=== PATIENT | male | born 1940 | race Caucasian/White ===

== ENCOUNTER → 2018-01-04 07:56 | Outpatient (POV) | payer MEDICARE, SELFPAY | PROVIDERS: Family Provider Family Medicine; PCP Family Medicine; Visit Provider Dentist | DX: Z00.00 Encounter for general adult medical examination without abnormal findings (principal) ==

== ENCOUNTER → 2018-01-18 09:42 | Outpatient (POV) | payer MEDICARE, SELFPAY | PROVIDERS: Visit Provider Dentist | DX: Z00.00 Encounter for general adult medical examination without abnormal findings (principal) ==

== ENCOUNTER → 2021-11-25 09:13 | Outpatient (CLI) | payer MEDICARE, SELFPAY ==
--- NOTE | 2021-11-25 09:19 | CA_ITS ---
FINAL REPORT TECHNIQUE: Color Doppler, duplex Doppler and oakley scale sonography of the bilateral neck arterial vasculature was performed. Velocities were measured in the carotid arteries. Stenosis evaluation based on the validated velocity criteria. CLINICAL HISTORY: .HTN, HLD, DM FINDINGS: The peak systolic velocity of the right common carotid artery is 81 cm/s. The peak systolic velocity of the right internal carotid artery is 74 cm/s and end diastolic velocity 9 cm/s. The ICA/CCA ratio is 0.9. A mild amount of plaque is present. The right external carotid artery is patent. The right vertebral artery is patent with antegrade flow. The peak systolic velocity of the left common carotid artery is 150 cm/s. The peak systolic velocity of the left internal carotid artery is 78 cm/s and end diastolic velocity 21 cm/s. The ICA/CCA ratio is 0.8. A mild amount of plaque is present. The left external carotid artery is patent.The left vertebral artery is patent with antegrade flow. IMPRESSION: Less than 50% bilateral carotid stenosis. Bilateral patent vertebral arteries with antegrade flow. Reviewed, Interpreted and Dictated by Suleman Desouza III, MD Transcribed by Chichi Ordoñez Authenticated and [facility]
--- NOTE | 2021-11-25 09:19 | CA_ITS ---
APPROVED REPORT EXAM: Comprehensive 2D, Doppler, and color-flow Echocardiogram Recording Studio Set Up Worker: Yoli Rene, YOON, RVS Ht: 6 ft 0 in Wt: 265lbs BSA: 2.40 BP: 146/72 mmHg Indications: Murmur, Hx- Rheumatic fever in childhood, DM, HTN, HLD, Family HX-HD 2D Dimensions Aortic Root 3.52 cm LA Volume 67.70 mL Left Atrium 3.72 cm LA Volume Index 28.20 mL/m2 (M/F) 16-34 LVOT 2.12 cm (M/F) 1.5-2.5 M-Mode Dimensions RVDd 3.34 cm (0.9-2.6) LA Diam 4.51 cm (1.9-4.0) LVDd 5.67 cm (3.5-5.7) Ao Diam 3.52 cm (2.0-3.7) LVDs 3.66 cm (3.5-5.7) IVSd 1.05 cm (0.6-1.1) PWd 0.97 cm (0.6-1.1) EF (Teich) 64.20% EPSs 0.49 cm FS 35.40% EDV (Teich) 158.10 mL TAPSE 2.02 (<1.7) ESV (Teich) 56.60 mL LV Diastology E Decel Time 237.00 (160-240 msec) E/A Ratio 0.68 MED E' 6.10 (< 7 cm/sec) MED A' 10.10 cm/s E'/MED E' Ratio 12.21 (>14) Aortic Valve LVOT Max 111.00 (70-110 cm/s) LVOT VTI 27.19 cm AoV Peak Chago. 251.00 (50-130 cm/s) AO Peak GR. 25.30 mmHg AO Mean GR. 13.50 (<5 mmHg) AO VTI 59.52 (18-25 cm) ANGEL (VTI) 1.61 (2.5-4.5 cm2) Mitral Valve MV A Velocity 110.00 (40-130 cm/s) E/A Ratio 0.68 MV Decel. Time 237.00 (160-240 ms) MV Mean Gr. 1.40 (<2mmHg) Pulmonary Valve PV Peak Velocity 91.00 (50-150 cm/s) Tricuspid Valve TR P. Velocity 151.00 cm/s RAP Estimate 10.00 mmHg RVSP 19.10 mmHg Left Ventricle Left atrium is mildly enlarged, left ventricle is normal size mild concentric left ventricular hypertrophy, estimated ejection fraction 55% with no regional wall motion abnormality, grade 1 diastolic dysfunction seen without tissue Doppler evidence of raise left atrial pressure. Right Ventricle Right atrium and right ventricle are mildly enlarged with normal contractility. Aortic Valve Aortic valve is thickened and calcified with mean gradient across aortic valve is 16 mmHg, valve area is 1.5 cm, represents mild aortic stenosis, there is no significant aortic insufficiency. Mitral Valve Mitral valve grossly normal, there is trace mitral regurgitation. Tricuspid Valve Tricuspid grossly normal, there is trace tricuspid regurgitation, tricuspid regurgitation jet velocity is inadequate for calculation of the right ventricular systolic pressure. Pulmonic Valve Pulmonic valve is poorly visualized. Great Vessels Aortic root is normal size. Inferior vena cava is normal size with normal inspiratory collapse. Pericardium No significant pericardial effusion noted. Conclusion 1. Biatrial enlargement, normal left ventricular size, mild concentric left ventricular hypertrophy, estimated ejection fraction 55% with no regional wall motion abnormality, grade 1 diastolic dysfunction seen without tissue Doppler evidence of raise left atrial pressure. 2. Mildly enlarged right ventricle with normal contractility. 3. Thickened and calcified aortic valve with mild aortic stenosis, there is no aortic insufficiency. 4. Trace mitral and tricuspid regurgitation. 5. No significant pericardial effusion noted. 6. Inferior vena cava is normal size with normal spectral collapse. Electronically signed by : Kervin Leblanc MD 11/26/2021 11:35:41
--- NOTE | 2021-11-25 10:28 | XR_ITS ---
FINAL REPORT CLINICAL HISTORY: RT SHOULDER PAIN FINDINGS: RIGHT SHOULDER Three views were obtained. There is no acute fracture or dislocation. There is mild AC joint and moderate glenohumeral joint degenerative change. No soft tissue abnormality is identified. IMPRESSION: Mild and moderate degenerative changes as above. Reviewed, Interpreted and Dictated by Suleman Desouza III, MD Transcribed by Megan Palma Authenticated and [facility]
--- NOTE | 2021-11-25 10:28 | XR_ITS ---
FINAL REPORT CLINICAL HISTORY: ARTHROPATHY LT KNEE FINDINGS: LEFT KNEE Three views were obtained. There is no acute fracture or dislocation. No joint effusion is identified. There are mild to moderate degenerative changes. There is narrowing of the medial compartment. Subchondral cysts are seen in the medial femoral condyle and medial tibial plateau. No soft tissue abnormality is identified. IMPRESSION: Degenerative changes as above. Reviewed, Interpreted and Dictated by Suleman Desouza III, MD Transcribed by Megan Palma Authenticated and [facility]
== END ==
PROVIDERS: PCP Family Medicine; Visit Provider Family Medicine
DX: I05.8 Other rheumatic mitral valve diseases (principal); I65.23 Occlusion and stenosis of bilateral carotid arteries; M17.12 Unilateral primary osteoarthritis, left knee
CPT/HCPCS: 73030; 73562; 93306; 93880

== ENCOUNTER 2023-02-21 08:34 | Day surgery (SDC) | payer MEDICARE, SELFPAY ==
[2023-02-21] VITALS (7 sets, daily range): BP systolic 130–222; BP diastolic 70–100; PULSE 53–57; RESP 17–18; TEMP 36.3–36.4; O2SAT 96–100; BMI 35.9
--- NOTE | 2023-02-21 08:58 | SUR.PREOP ---
uNABLE TO SCAN EYE DROPS, PHARMACY NOTIFIED.
[2023-02-21 09:16] LABS: POC Glucose,Bedside 102 (70-110)
== END 2023-02-21 10:10 | disposition home or self-care (01) ==
PROVIDERS: PCP Family Medicine; Visit Provider Ophthalmology
PROC: (CPT 66984; principal; 2023-02-21 10:00)
DX: E11.36 Type 2 diabetes mellitus with diabetic cataract (principal); H25.9 Unspecified age-related cataract
CPT/HCPCS: 66984; 82962; V2632

== ENCOUNTER 2023-03-07 08:37 | Day surgery (SDC) | payer MEDICARE, SELFPAY ==
[2023-03-03 13:38] VITALS: BMI 34.4
[2023-03-07] VITALS (9 sets, daily range): BP systolic 131–189; BP diastolic 57–84; PULSE 52–57; RESP 16–20; TEMP 36.1; O2SAT 96–100
[2023-03-07 09:24] LABS: POC Glucose,Bedside 88 (70-110)
== END 2023-03-07 10:34 | disposition home or self-care (01) ==
PROVIDERS: PCP Family Medicine; Visit Provider Ophthalmology
PROC: (CPT 66984; principal; 2023-03-07 10:00)
DX: E11.36 Type 2 diabetes mellitus with diabetic cataract (principal); H25.9 Unspecified age-related cataract
CPT/HCPCS: 66984; 82962; V2632

== ENCOUNTER → 2023-04-07 09:32 | Outpatient (CLI) | payer MEDICARE, SELFPAY ==
--- NOTE | 2023-04-07 09:37 | US_ITS ---
FINAL REPORT TECHNIQUE: Sonographic images of the right upper quadrant were obtained. CLINICAL HISTORY: RUQ ABDOMINAL PAIN FINDINGS: PANCREAS: Unremarkable. LIVER: There are areas of hyperechogenicity, which is somewhat geographic, with and may represent fatty change. No focal hepatic lesion. No intrahepatic biliary ductal dilatation. GALLBLADDER: No gallstones. No gallbladder wall thickening or pericholecystic fluid. COMMON DUCT: Not visualized. RIGHT KIDNEY: The right kidney measures 14.1 cm. There are multiple right renal cysts. There is no hydronephrosis or stone. FREE FLUID: None. IMPRESSION: Probable fatty liver. Multiple right renal cysts. Reviewed, Interpreted and Dictated by Michaela Shelton MD Transcribed by Jennie Mascorro Authenticated and [facility]
== END ==
PROVIDERS: PCP Family Medicine; Visit Provider Family Medicine
DX: R10.11 Right upper quadrant pain (principal)
CPT/HCPCS: 76705

== ENCOUNTER → 2023-04-14 09:48 | Outpatient (CLI) | payer MEDICARE, SELFPAY ==
--- NOTE | 2023-04-14 09:55 | NM_ITS ---
FINAL REPORT CLINICAL HISTORY: ABD PAIN neg u/s for gb stones 10:10 am 8.39 mci tc choletec 2.3 mcg of cck injected into lt ant. pain with cck COMPARISON: None FINDINGS: Sequential anterior projection images of the abdomen were obtained after the intravenous injection of 8.39 mCi technetium 99m Choletec. There is normal uptake of radiotracer by the liver. The bile ducts are visualized by 5 minutes. Gallbladder activity is seen by 10 minutes. Bowel activity is noted by 30 minutes. After 1 hour, 3 ?g of CCK was injected intravenously for calculation of gallbladder ejection fraction. The gallbladder ejection fraction is 23%, which is lower than normal. IMPRESSION: No evidence of cystic duct or bile duct obstruction. Depressed fraction of 23%. Reviewed, Interpreted and Dictated by Aroldo Leos MD Transcribed by Natasha Cheung Authenticated and [facility]
== END ==
PROVIDERS: PCP Family Medicine; Visit Provider Family Medicine
DX: R10.11 Right upper quadrant pain (principal)
CPT/HCPCS: 78227; A9537; J2805

== ENCOUNTER → 2023-04-26 10:45 | Outpatient (CLI) | payer MEDICARE, SELFPAY ==
--- NOTE | 2023-04-26 10:47 | ECG_ITS ---
APPROVED REPORT Exam: Resting ECG HR:56 bpm ECG Measurements Heart Rate 56 AXES [place] 213 P 46 QRSd 157 QRS -3 QT 452 T 50 QTc 443 Conclusion SINUS BRADYCARDIA WITH FIRST DEGREE AV BLOCK WITH FREQUENT SUPRAVENTRICULAR PREMATURE COMPLEXES RIGHT BUNDLE BRANCH BLOCK [120+ ms QRS DURATION, UPRIGHT V1, 40+ ms S IN I/aVL/V4/V5/V6] ABNORMAL ECG UNCONFIRMED REPORT Electronically signed by : Ron Swann MD 04/26/2023 18:25:17
[2023-04-26 11:36] LABS: Basophils # 0.1 K/mm3 (0-0.2); Basophils % 0.8 % (0.1-2.0); Eosinophils # 0.2 K/mm3 (0.0-0.4); Eosinophils % 2.9 % (0.1-12.0); Hematocrit 41.7 % (42.0-52.0); Hemoglobin 14.2 g/dL (14.1-18.0); Lymphocytes # 2.2 K/mm3 (0.7-4.5); Mean Corpuscular HGB Conc 34.1 g/dL (31.8-35.4); Mean Corpuscular Hemoglobin 32.6 pg (27.0-31.2); Mean Corpuscular Volume 95.6 fl (80-94); Mean Platelet Volume 7.7 fl (7.4-10.4); Monocytes # 0.5 K/mm3 (0.1-1.0); Monocytes % 6.5 % (1.7-9.3); Neutrophils # 4.5 K/mm3 (1.8-7.8); Neutrophils % 59.8 % (37.0-80.0); Platelet Count 199 K/mm3 (142-424); Red Blood Count 4.36 M/mm3 (4.60-6.20); Red Cell Distribution Width 14.2 % (11.5-17.5); White Blood Count 7.4 K/mm3 (4.8-10.8)
[2023-04-26 12:23] LABS: Alanine Aminotransferase 27 U/L (12-78); Albumin Level 4.2 g/dl (3.5-5.0); Albumin/Globulin Ratio 1.6 (1.1-1.8); Alkaline Phosphatase 77 U/L (38-126); Anion Gap 8.9 mEq/L (5-15); Aspartate Amino Transferase 31 U/L (17-59); Bilirubin,Total 0.5 mg/dl (0.2-1.3); Blood Urea Nitrogen 18 mg/dl (9-20); Calcium 9.5 mg/dl (8.4-10.2); Carbon Dioxide 31 mmol/L (22.0-30.0); Chloride 100 mmol/L (98-107); Estimated Glomerular Filt Rate 72 ml/min (>60); GFR (African American) 87 ML/MIN (>60); Globulin 2.7 g/dL (1.3-3.2); Glucose 98 mg/dl (74-100); Potassium 3.9 mmoL/L (3.5-5.1); Sodium 136 mmol/L (136-145); Total Protein,Serum 6.9 g/dl (6.3-8.2)
== END ==
PROVIDERS: PCP Family Medicine; Visit Provider Surgery
DX: R10.9 Unspecified abdominal pain (principal)
CPT/HCPCS: 36415; 80053; 85025; 93005

== ENCOUNTER 2023-05-19 08:42 | Day surgery (SDC) | payer MEDICARE, SELFPAY ==
[2023-05-15 13:18] VITALS: BMI 34.8
--- NOTE | 2023-05-17 12:46 | SUR.PREOP ---
0900-R. Jose SURVEILLANCE SUPERVISOR reviewed abnormal EKG. Pt has not seen cardiology for 1 year. SURVEILLANCE SUPERVISOR would like for pt to see cardiology before surgery if possible. Attempted to call pt and traffic personnel supervisor x2 with no answer. I did leave a message. Left message with cardiology office that we were unable to contact pt about appointment at 1315.
[2023-05-19] VITALS (11 sets, daily range): BP systolic 126–181; BP diastolic 59–109; PULSE 55–72; RESP 16–18; TEMP 36.1–36.6; O2SAT 91–99
[2023-05-19] MEDS: LACTATED RINGERS 1000ML 1,000 ML 25 ML IV (09:09)
--- NOTE | 2023-05-19 09:11 | EXP.ANES.CKL ---
[facility] Disclaimer: The information contained in this section may have been updated after the patient was seen, as this information can be updated by other users. Medical History Arrhythmia Cataract Diabetes mellitus, type 2 Hyperlipidemia Hypertension Surgical History History of back surgery History of knee replacement History of transurethral resection of prostate Hx of cataract surgery Family History Other Family history of cancer Family history of hypertension Social History Smoking Status: Former smoker alcohol intake: never substance use type: denies use current occupational status: retired Travel in the last 8 weeks: None [facility] Anesthesia Checklist Patient Identification Patient Identification: Arm Band, Family and Verbal (Name & ) Structural Data Admitted From: Home Planned Operative Procedure/s: Lap. Sabina Consent for Planned Operative Procedure(s) Verified: Yes Verified Documents: Surgical Consent and History and Physical NPO Status Verified Time NPO: 21:00 Chart Verification Results Verified: CBC, BMP and ECG Additional verifications Fingerstick Blood Glucose: 104 Patient : No Anesthesia Reactions: No Hx Blood Transfusions: No Cardiovascular Assessment Heart Sounds: S1 & S2 Pulse Rhythm: Irregular Peripheral Edema: Yes (2+ HERB LE) Airway Assessment Mallampati Score:: Class II C-Spine Mobility Assessed: Yes (Limited extension) TMJ Mobility Assessed: Yes Dentition: Poor Dentition (Upper partial out. Nothing loose per pt.) Neurological Assessment Level of Consciousness: Awake, Alert and Follows Commands Hx Seizures: No Numbness or tingling in extremities: No Anesthesia Plan Anesthesia Risk discussed: Yes Anesthesia Plan: Verified ASA Class: III Anesthesia Type: General
[2023-05-19 09:16] LABS: POC Glucose,Bedside 104 (70-110)
[2023-05-19] MEDS: CEFAZOLIN SODIUM 2 GM in 0.9 % SODIUM CHLORIDE 100 ML IV (09:18)
[2023-05-19] MEDS: LIDOCAINE 1% 20ML MDV 20 ML (09:42)
[2023-05-19] MEDS: SODIUM CHLORIDE IRRIG SOLUTION 3,000 ML 200 ML IR (09:42)
--- NOTE | 2023-05-19 10:48 | EXP.OP.NOTE ---
Date of procedure: 05/19/23 Pre-op Diagnosis:: Biliary dyskinesia Post-op Diagnosis:: Acute on chronic cholecystitis Procedure performed:: Laparoscopic cholecystectomy Surgeon:: Ladarius Chase MD Anesthesia: GETA Estimated blood loss (mL): 15 Operative findings:: Significant distention Serosal inflammatory changes/ weeping Severe infundibular thickening/soft tissue stranding Operative note:: After informed consent was obtained, the patient was taken to the operating room and placed in the supine position. General anesthesia was induced and the abdomen was prepped and draped in a sterile fashion. After infiltration with local anesthetic an infraumbilical incision was made. A Veress needle was placed in position. The abdomen was insufflated. A 5 mm optical trocar was placed in position. Under direct visualization, a 12 mm trocar was placed in the subxiphoid position and 2 additional 5 mm trocars were placed in the right upper quadrant. The gallbladder was elevated up and over the liver margin. The tissue around the cystic duct was carefully dissected. 3 clips were placed proximally and the duct was transected with harmonic tawana. Harmonic tawana were then utilized to dissect the gallbladder away from the liver margin with careful attention to the control of the cystic artery. The gallbladder was placed in a retrieval bag and removed through the subxiphoid trocar site. The right upper quadrant was thoroughly irrigated. No active bleeding or bile leak was noted. Fascia at the subxiphoid trocar site was reapproximated utilizing 0 Ethibond. The remaining trocars were removed. All wounds were irrigated and skin was closed with 4-0 Monocryl in a subcuticular fashion. Steri-Strips were applied. The patient's anesthetic agents were reversed and extubation was completed prior to transfer to recovery in stable condition. Condition: stable Disposition: PACU Specimens:: Gallbladder Complications:: No immediate
--- NOTE | 2023-05-19 10:58 | EXP.ANES.I ---
[facility] Anesthesia Record Part I Anesthesia Record I Intake, IV Amount: 700 Hydration: Adequate Estimated blood loss (mL): 25 Urine output (mL): 0 Blood Products used (#): none Blood Pressure: 152/109 SaO2: 91 Pulse Rate: 70 Airway Patency: Patent Respiratory Rate: 18 Temperature: 97.0 F Patient is:: Awake (Talking), Drowsy and Stable Stable to PACU at:: 10:55
[2023-05-19 11:33] LABS: POC Glucose,Bedside 138 (70-110)
[2023-05-19] MEDS: MORPHINE 2MG/ML SYRINGE 2 MG IV (11:38)
--- NOTE | 2023-05-19 12:39 | P.PNANES_ITS ---
[facility] Anesthesia Record Part II Anesthesia Record Part II Discharge Time: 11:40 Destination: Surgical Day Care (OP Surgery) PACU nurse assessment reviewed?: Yes Patient Condition:: Good Anesthesia Complications:: None Swallowing reflex intact?: Yes Airway Patency: Patent Cyanosis?: No Blood Pressure: 172/78 SaO2: 98 Respiratory Rate: 16 Pulse Rate: 62 Temperature: 97.9 F Mental Status: Alert & Oriented Pain level:: 3 Nausea and/or vomitting:: None Intake, IV Amount: 0 Hydration: Adequate
== END 2023-05-19 12:11 | disposition home or self-care (01) ==
PROVIDERS: PCP Family Medicine; Visit Provider Surgery
PROC: 0FT44ZZ Resection of Gallbladder, Percutaneous Endoscopic Approach (ICD-10-PCS; CPT 47562; principal; 2023-05-19 10:15)
DX: K81.1 Chronic cholecystitis (principal); K82.8 Other specified diseases of gallbladder; E11.9 Type 2 diabetes mellitus without complications
CPT/HCPCS: 47562; 82962; 88304; 96374; J0690; J2405

== ENCOUNTER → 2023-05-23 10:23 | Outpatient (CLI) | payer MEDICARE, SELFPAY ==
[2023-05-23 10:45] LABS: Basophils % 0.5 % (0.1-2.0); Eosinophils # 0.2 K/mm3 (0.0-0.4); Eosinophils % 2.9 % (0.1-12.0); Hematocrit 43.6 % (42.0-52.0); Hemoglobin 14.5 g/dL (14.1-18.0); Lymphocytes # 1.8 K/mm3 (0.7-4.5); Lymphocytes % 25.1 % (10-50); Mean Corpuscular HGB Conc 33.4 g/dL (31.8-35.4); Mean Corpuscular Hemoglobin 32.7 pg (27.0-31.2); Mean Corpuscular Volume 97.8 fl (80-94); Monocytes # 0.5 K/mm3 (0.1-1.0); Monocytes % 7.5 % (1.7-9.3); Neutrophils # 4.6 K/mm3 (1.8-7.8); Neutrophils % 63.9 % (37.0-80.0); Platelet Count 200 K/mm3 (142-424); Red Blood Count 4.45 M/mm3 (4.60-6.20); Red Cell Distribution Width 14.5 % (11.5-17.5); White Blood Count 7.2 K/mm3 (4.8-10.8)
[2023-05-23 12:06] LABS: Alanine Aminotransferase 33 U/L (12-78); Albumin Level 4.2 g/dl (3.5-5.0); Albumin/Globulin Ratio 1.6 (1.1-1.8); Alkaline Phosphatase 83 U/L (38-126); Anion Gap 8.3 mEq/L (5-15); Aspartate Amino Transferase 33 U/L (17-59); Bilirubin,Total 0.6 mg/dl (0.2-1.3); Blood Urea Nitrogen 23 mg/dl (9-20); Calcium 9.4 mg/dl (8.4-10.2); Carbon Dioxide 28 mmol/L (22.0-30.0); Chloride 105 mmol/L (98-107); Estimated Glomerular Filt Rate 72 ml/min (>60); GFR (African American) 87 ML/MIN (>60); Globulin 2.6 g/dL (1.3-3.2); Glucose 117 mg/dl (74-100); Potassium 4.3 mmoL/L (3.5-5.1); Sodium 137 mmol/L (136-145); Total Protein,Serum 6.8 g/dl (6.3-8.2)
== END ==
PROVIDERS: PCP Family Medicine; Visit Provider Surgery
DX: K81.1 Chronic cholecystitis (principal)
CPT/HCPCS: 36415; 80053; 85025

== ENCOUNTER 2023-09-28 17:08 | Emergency (ER) | payer MEDICARE, SELFPAY ==
[2023-09-28] VITALS (8 sets, daily range): BP systolic 152–175; BP diastolic 68–87; PULSE 78–96; RESP 16–18; TEMP 36.6–37; O2SAT 96–99; BMI 37.3
--- NOTE | 2023-09-28 17:56 | ED_ITS ---
Discharge Plan Disposition Patient Disposition: Home, Self-Care Prescriptions Prescriptions: New tamsulosin 0.4 mg capsule 0.4 mg PO DAILY Qty: 30 2RF No Action valsartan-hydrochlorothiazide 320-12.5 mg tablet 1 tab PO DAILY allopurinol 300 mg tablet See Rx Instructions .ROUTE .COMPLEX Qty: 45 3RF Dose Instruction: TAKE 1 TABLET BY MOUTH EVERY OTHER DAY Rx Instructions: TAKE 1 TABLET BY MOUTH EVERY OTHER DAY metoprolol tartrate 50 mg tablet See Rx Instructions .ROUTE .COMPLEX Qty: 135 3RF Dose Instruction: TAKE 1 TABLET BY MOUTH IN THE MORNING AND ONE-HALF TABLET BY MOUTH IN THE EVENING Rx Instructions: TAKE 1 TABLET BY MOUTH IN THE MORNING AND ONE-HALF TABLET BY MOUTH IN THE EVENING metformin 500 mg tablet 500 mg PO DAILY amlodipine 2.5 mg Tablet 2.5 mg PO DAILY simvastatin 40 mg tablet 40 mg PO HS gabapentin 100 mg capsule 300 mg PO DAILY niacin 1,000 mg Tablet Extended Release 1,000 mg PO HS aspirin 81 mg Capsule 81 mg PO DAILY Referrals Follow up/Referrals: Edgar London MD [Primary Care Provider] - See instructions Activity Restrictions/Add. Instructions Additional Instructions/Restrictions: Contact Dr. Welch, urologist, to schedule appointment for follow-up. Talk to family doctor about further care and refills of Flomax. Clean Varela catheter daily with cleaning supplies, including alcohol pads or alcohol and cotton balls. Call your family doctor to establish care for this visit to the emergency department and schedule follow-up within 48 hours to ensure improvement. If you have any worsening of your condition or any other concerning signs or symptoms, return to the emergency department or your primary care doctor for further evaluation. Dr. Welch appointment information [facility] [address] [address] Clinical Impressions Clinical Impression: Acute urinary retention Instructions Patient Instructions: DI for Urinary Tract Infection (UTI), DI for Urinary Tract Infection in Children Discharge ED Provider: Ramakrishna Arredondo General Adult HPI General Chief complaint: Urogenital-Male Stated complaint: Unable to pee Time Seen by Provider: 09/28/23 17:15 Mode of Arrival: Wheelchair Source of Information: Patient and Spouse Limitations: No Limitations Description of Symptoms (Recalled from ER Triage Doc. by RN): pt presents to ED with c/o inability to pee. pt reports that he was able to dribble this morning, but no urine since then. pt reports tenderness upon palpation of bladder. bladder scan upon assessment was 955 mLs. History of Present Illness HPI narrative: Please note that above description of symptoms, in this electronic medical record under categorization of recalled from ER triage doctor by RN are reflective of an initial nursing assessment, however, is not reflective of my full history and physical exam that was personally taken and clarified. Consequentially, this preceding description of symptoms, which may include the patient's categorized chief complaint in the EMR, do not reflect my personal clinical impression, and the ultimate description of history of present illness and patient stated complaints should be deferred to this section of the note. U nless stated otherwise or congruent with this section of the note, additional signs, symptoms, or incongruence should be interpreted as inaccurate with my clinical impression. Related Data Home Medications Medication Instructions Recorded Confirmed amlodipine 2.5 mg tablet 2.5 mg PO DAILY bp 02/21/23 05/31/23 gabapentin 100 mg capsule 300 mg PO DAILY Pain 02/21/23 05/31/23 metformin 500 mg tablet 500 mg PO DAILY Diabetes 02/21/23 05/31/23 niacin 1,000 mg tablet,extended 1,000 mg PO HS Supplement 02/21/23 05/31/23 release simvastatin 40 mg tablet 40 mg PO HS Cholesterol 02/21/23 05/31/23 aspirin 81 mg capsule 81 mg PO DAILY HEART HEALTHY 03/03/23 05/31/23 valsartan 320 1 tab PO DAILY 04/26/23 05/31/23 mg-hydrochlorothiazide 12.5 mg tablet Previous Rx's Medication Instructions Recorded allopurinol 300 mg tablet See Rx Instructions .Route 02/28/23 .COMPLEX #45 tabs metoprolol tartrate 50 mg tablet See Rx Instructions .Route 03/21/23 .COMPLEX #135 tabs tamsulosin 0.4 mg capsule 0.4 mg PO DAILY #30 caps 09/28/23 Allergies Allergy/AdvReac Type Severity Reaction Status Date / Time No Known Drug Allergies Allergy Unknown Unknown Verified 09/28/23 17:59 allergy reaction [facility] Disclaimer: The information contained in this section may have been updated after the patient was seen, as this information can be updated by other users. Medical History (Updated 09/28/23 @ 19:15 by Ramakrishna Arredondo MD) Chronic cholecystitis Cataract Diabetes mellitus, type 2 Arrhythmia Hyperlipidemia Hypertension Surgical History (Updated 05/31/23 @ 11:13 by FIOR Corado) History of colonoscopy History of laparoscopic cholecystectomy Hx of cataract surgery History of transurethral resection of prostate History of back surgery History of knee replacement Family History Other Family history of cancer Family history of hypertension Social History Smoking Status: Former smoker alcohol intake: never substance use type: denies use current occupational status: retired Travel in the last 8 weeks: None ROS Obtained: Yes All systems reviewed & no additional complaints except as documented Physical Exam General General appearance: alert and in no apparent distress Head Head exam: atraumatic and normocephalic Eye Eye exam: Present normal appearance, PERRL and EOMI ENT ENT exam: Present mucous membranes moist Neck Neck exam: Present normal inspection, full ROM and trachea midline Respiratory Respiratory exam: Absent respiratory distress, wheezes, stridor, accessory muscl e use or prolonged expiratory phase Cardiovascular Cardiovascular exam: Present normal rhythm Abdominal Exam Abdominal exam: Present soft; Absent distention, tenderness, guarding, rebound or rigidity Extremities Exam Extremities exam: Absent edema Neurological Exam Neurological exam: Present alert, oriented X3, CN II-XII intact and normal gait; Absent motor sensory deficit Skin Skin exam: Present warm and dry; Absent diaphoresis or erythema Medical Decision Making Medical Records Medical records reviewed: Yes I reviewed the patient's medical records. Romulo Inquiry Pt receiving controlled substance: No Romulo was queried for this patient: No Vital Signs: 09/28/23 17:10 09/28/23 17:30 09/28/23 18:00 Temperature 98.6 F Temperature Source Oral Pulse Rate 96 H 83 Pulse Rate [Left Radial] 94 H Respiratory Rate 16 Blood Pressure 155/69 H 152/75 H Blood Pressure [Right Arm] 169/68 H Blood Pressure Mean 93 Blood Pressure Mean [Right Arm] 101 02 Sat by Pulse Oximetry 96 99 98 Oxygen Delivery Method Room Air Room Air Room Air 09/28/23 18:30 09/28/23 19:01 09/28/23 19:31 Temperature Temperature Source Pulse Rate 78 79 87 Pulse Rate [Left Radial] Respiratory Rate 18 18 Blood Pressure 175/87 H 164/73 H 168/82 H Blood Pressure [Right Arm] Blood Pressure Mean Blood Pressure Mean [Right Arm] 02 Sat by Pulse Oximetry 97 98 97 Oxygen Delivery Method Room Air Room Air Room Air 09/28/23 21:13 Temperature Temperature Source Pulse Rate 86 Pulse Rate [Left Radial] Respiratory Rate 18 Blood Pressure 157/77 H Blood Pressure [Right Arm] Blood Pressure Mean Blood Pressure Mean [Right Arm] 02 Sat by Pulse Oximetry 98 Oxygen Delivery Method Room Air Lab Data Lab Results 09/28/23 17:57: Urine Color Yellow, Urine Appearance Clear, Urine pH 6.0, Ur Specific Varna 1.025, Urine Protein Negative, Urine Glucose (UA) Negative, Urine Ketones Negative, Urine Blood Negative, Urine Nitrate Negative, Urine Bilirubin Negative, Urine Urobilinogen 0.2, Ur Leukocyte Esterase Negative, Urine RBC None, Urine WBC None, Ur Squamous Epith Cells None, Urine Bacteria Trace Orders (Tests/Meds): ED MEDICATIONS Discontinued Medications Generic Name Dose Route Start Last Admin Trade Name Freq PRN Reason Stop Dose Admin Tamsulosin HCl 0.4 mg 09/28/23 17:56 09/28/23 18:23 Tamsulosin 0.4mg Capsule PO 09/28/23 17:57 0.4 mg ONCE ONE Administration ORDERS Category Date Time Status UA [Urinalysis and Microscopic] Stat Lab 09/28/23 17:57 Completed Medical Decision Narrative: 83-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 Patient states that he had a knee replacement 8 days ago. Due to pain medication, became constipated. Since being constipated, tried rectal suppository yesterday, 09/26. Has had numerous episodes of diarrhea since the suppository, so has been clenching his buttocks preventing himself from stooling himself. Since this has been having, patient has had difficulty urinating. Denies burning or blood, but last time he was able to urinate and fully empty his bladder was yesterday, 09/26 in the PM. States that he has urinated approximately 2 cups of fluid today with significant difficulty and straining. No fevers or chills, or any other concerns. 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 History was obtained via conversation with patient. On arrival, patient hemodynamically stable, alert, [oriented x4, ][appropriate, ]GCS [15], moving all extremities spontaneously, pupils equal and reactive to light. Full physical exam performed and significant for abdomen soft, nontender, nondistended. States that he does have a fullness in suprapubic area. No flank tenderness. Differential includes UTI, bladder stone, BPH, pelvic floor muscle dysfunction, malignancy, among others. Patient's bladder had 950 mL urine on bladder scan. Patient was given Flomax, straight cath for symptomatic management[ and correction of underlying abnormalities]. Workup independently interpreted and significant for negative UA. Patient was placed in observation beginning at 6 PM in order to allow patient time to take oral intake, spontaneous voiding challenge and determine need for admission versus home-going. The patient was provided fluids, bedside commode while awaiting results. Independent interpretation of results demonstrated negative urinalysis, patient unable to urinate on reassessment. Varela catheter anchored, Varela catheter care was discussed with patient. At this time, I feel patient is appropriate for discharge. Total observation time 3.5 hours. Critical Care Critical Care Time Critical Care Time: No
[2023-09-28 18:00] LABS: Microscopic, Urine URINE MICROSCOPIC (MICROSCOPIC)
[2023-09-28 18:03] LABS: Appearance,Urine CLEAR (Clear); Bilirubin,Urine Negative (Negative); Blood, Urine Negative (Negative); Color,Urine YELLOW (Yellow); Glucose,Urine (UA) Negative (Negative); Ketones,Urine Negative (Negative); Leukocyte Esterase,Urine Negative (Negative); Nitrate,Urine Negative (Negative); Protein,Urine Negative (Negative); Specific Gravity, Urine 1.025 (1.005-1.030); Urobilinogen,Urine 0.2 EU/dl (0.2)
[2023-09-28 18:13] LABS: Bacteria,Urine Trace /lpf
[2023-09-28] MEDS: TAMSULOSIN 0.4MG CAPSULE 0.400000000000000022 MG PO (18:23)
--- NOTE | 2023-09-28 19:55 | PC.NURSE ---
Pt cleaned up after BM, placed on BSC, awaiting for him to urinate, Pt to call out when he is done on BSC, at bedside, warm blankets provided
--- NOTE | 2023-09-28 21:44 | PC.NURSE ---
Varela inserted, spouse educated on drainage and care, d/c explained no questions at this time
== END 2023-09-28 21:59 | disposition home or self-care (01) ==
PROVIDERS: Emergency Provider Emergency Medicine; PCP Family Medicine
DX: R33.8 Other retention of urine (principal)
CPT/HCPCS: 51702; 81001; 99283

== ENCOUNTER 2023-10-02 15:10 | Emergency (ER) | payer MEDICARE, SELFPAY ==
[2023-10-02 15:24] VITALS: BMI 37.9
--- NOTE | 2023-10-02 15:30 | P.DN_ITS ---
Pronouncement Note Date and Time of Date of : 10/02/23 Time of : 15:22 PCOD Preliminary cause of : Cardiac arrest Summary Additional details: See ED note. Patient arrived in cardiac arrest story was that he had a shockable rhythm prehospital ACLS was performed patient was intubated. He had 4 waveform capnography very low end-tidal upon arrival tube was confirmed with direct visualization. Bedside ultrasound showed no cardiac activity. After discussion with his she stated that he was DNR and did not want any aggressive resuscitative efforts performed patient's prognosis was extremely poor anyway resuscitative efforts were discontinued. Exact cause of his cardiac arrest unknown. He did recently have knee surgery is possible he had a pulmon ann embolism but this cannot be definitively confirmed. Additional Data Confirmation of : no pulse, no respirations, no heart sounds and pupils fixed and dilated Family: at bedside Attending/PCP notified?: No Autopsy should be considered if:: Unknown or unanticipated medical complications Cause is not known with certainty on clinical grounds Would allay concerns of the public/family regarding Unexplained/unexpected apparently natural and not subject to a forensic medical jurisdiction DOA Within 24 hours of admission Sustained or apparently sustained injury while in the hospital Result of high risk, infectious and contagious disease Obstetric and pediatric arising from environmental or occupational hazard Unexplained/unexpected from dental, medical, or surgical diagnostic procedures and/or therapies Would disclose a known or suspected illness which also may have a bearing on survivors or recipients of transplanted organs Autopsy requested?: No Does not meet criteria
[2023-10-02] MEDS: EPINEPHrine 0.1 MG/ML 10ML SYRINGE (CRASH CART) 1 MG IV ×4 (15:31→15:32)
[2023-10-02] MEDS: SODIUM BICARB 8.4% 50ML SYRINGE (CRASH CART) 50 MEQ IV ×2 (15:31)
[2023-10-02] MEDS: CALCIUM CHLORIDE 1 GM in 0.9 % SODIUM CHLORIDE 100 ML IV (15:32)
--- NOTE | 2023-10-02 15:32 | HMH.EDGENADL ---
Discharge Plan Disposition Chief Complaint: Cardiac Arrest/CPR Prescriptions Prescriptions: No Action valsartan-hydrochlorothiazide 320-12.5 mg tablet 1 tab PO DAILY allopurinol 300 mg tablet See Rx Instructions .ROUTE .COMPLEX Qty: 45 3RF Dose Instruction: TAKE 1 TABLET BY MOUTH EVERY OTHER DAY Rx Instructions: TAKE 1 TABLET BY MOUTH EVERY OTHER DAY metoprolol tartrate 50 mg tablet See Rx Instructions .ROUTE .COMPLEX Qty: 135 3RF Dose Instruction: TAKE 1 TABLET BY MOUTH IN THE MORNING AND ONE-HALF TABLET BY MOUTH IN THE EVENING Rx Instructions: TAKE 1 TABLET BY MOUTH IN THE MORNING AND ONE-HALF TABLET BY MOUTH IN THE EVENING metformin 500 mg tablet 500 mg PO DAILY amlodipine 2.5 mg Tablet 2.5 mg PO DAILY simvastatin 40 mg tablet 40 mg PO HS gabapentin 100 mg capsule 300 mg PO DAILY niacin 1,000 mg Tablet Extended Release 1,000 mg PO HS tamsulosin 0.4 mg capsule 0.4 mg PO DAILY Qty: 30 2RF aspirin 81 mg Capsule 81 mg PO DAILY Referrals Follow up/Referrals: Edgar London MD [Primary Care Provider] - See instructions Discharge ED Provider: Kishore Tierney General Adult HPI General Chief complaint: Cardiac Arrest/CPR Stated complaint: Code Time Seen by Provider: 10/02/23 15:12 History of Present Illness HPI narrative: Patient is an 83-year-old male brought in by EMS in full cardiac arrest. Story from EMS was that he was found unresponsive with agonal respirations and had a witnessed loss of pulse at that time. ACLS was performed in addition to patient being intubated prehospital. For waveform capnography was confirmed. Several rounds of epinephrine were given patient did have 1 episode of V-fib from history and was shocked x 1 with return of spontaneous circulation prior to arrival. Of note patient did recently have knee replacement at [place] and according to his was recently at the ER with complaints of leg pain having a negative lower extremity DVT ultrasound. Related Data Home Medications Medication Instructions Recorded Confirmed amlodipine 2.5 mg tablet 2.5 mg PO DAILY bp 02/21/23 05/31/23 gabapentin 100 mg capsule 300 mg PO DAILY Pain 02/21/23 05/31/23 metformin 500 mg tablet 500 mg PO DAILY Diabetes 02/21/23 05/31/23 niacin 1,000 mg tablet,extended 1,000 mg PO HS Supplement 02/21/23 05/31/23 release simvastatin 40 mg tablet 40 mg PO HS Cholesterol 02/21/23 05/31/23 aspirin 81 mg capsule 81 mg PO DAILY HEART HEALTHY 03/03/23 05/31/23 valsartan 320 1 tab PO DAILY 04/26/23 05/31/23 mg-hydrochlorothiazide 12.5 mg tablet Previous Rx's Medication Instructions Recorded allopurinol 300 mg tablet See Rx Instructions .Route 02/28/23 .COMPLEX #45 tabs metoprolol tartrate 50 mg tablet See Rx Instructions .Route 03/21/23 .COMPLEX #135 tabs tamsulosin 0.4 mg capsule 0.4 mg PO DAILY #30 caps 09/28/23 Allergies Allergy/AdvReac Type Severity Reaction Status Date / Time No Known Drug Allergies Allergy Unknown Unknown Verified 09/28/23 17:59 allergy reaction [facility] Disclaimer: The information contained in this section may have been updated after the patient was seen, as this information can be updated by other users. Medical History (Updated 09/28/23 @ 19:15 by Ramakrishna Arredondo MD) Chronic cholecystitis Cataract Diabetes mellitus, type 2 Arrhythmia Hyperlipidemia Hypertension Surgical History (Updated 05/31/23 @ 11:13 by FIOR Corado) History of colonoscopy History of laparoscopic cholecystectomy Hx of cataract surgery History of transurethral resection of prostate History of back surgery History of knee replacement Family History Other Family history of cancer Family history of hypertension Social History Smoking Status: Former smoker alcohol intake: never substance use type: denies use current occupational status: retired Travel in the last 8 weeks: None ROS Obtained: Yes All systems reviewed & no additional complaints except as documented Physical Exam General General appearance: other (Cardiac arrest GCS of 3) Head Head exam: atraumatic Eye Eye exam: Present other (Pupils fixed and dilated) Respiratory Respiratory exam: Present other (No respiratory effort bilateral breath sounds are equal patient able to be bagged without significant difficulty fiberoptic confirmation of tube demonstrated to traveling through the vocal cords) Cardiovascular Cardiovascular exam: Present other (Cyanosis throughout poor perfusion full cardiac arrest) Neurological Exam Neurological exam: Present other (GCS of 3T) Medical Decision Making Romulo Inquiry Pt receiving controlled substance: No Orders (Tests/Meds): ED MEDICATIONS Generic Name Dose Route Start Last Admin Trade Name Freq PRN Reason Stop Dose Admin Calcium Chloride 1 gm/ Sodium 110 mls @ 55 mls/hr 10/02/23 15:15 Chloride IV 10/02/23 15:16 ONCE ONE Discontinued Medications Generic Name Dose Route Start Last Admin Trade Name Freq PRN Reason Stop Dose Admin Epinephrine HCl 1 mg 10/02/23 15:12 10/02/23 15:32 Epinephrine 0.1 Mg/Ml 10ml Syringe (Crash Cart) IV 10/02/23 15:13 1 mg ONCE ONE Administration Epinephrine HCl 1 mg 10/02/23 15:15 10/02/23 15:31 Epinephrine 0.1 Mg/Ml 10ml Syringe (Crash Cart) IV 10/02/23 15:16 1 mg ONCE ONE Administration Epinephrine HCl 1 mg 10/02/23 15:18 10/02/23 15:31 Epinephrine 0.1 Mg/Ml 10ml Syringe (Crash Cart) IV 10/02/23 15:19 1 mg ONCE ONE Administration Epinephrine HCl 1 mg 10/02/23 15:21 10/02/23 15:31 Epinephrine 0.1 Mg/Ml 10ml Syringe (Crash Cart) IV 10/02/23 15:22 1 mg ONCE ONE Administration Sodium Bicarbonate 50 meq 10/02/23 15:15 10/02/23 15:31 Sodium Bicarb 8.4% 50ml Syringe (Crash Cart) IV 10/02/23 15:16 50 meq ONCE ONE Administration Sodium Bicarbonate 50 meq 10/02/23 15:18 10/02/23 15:31 Sodium Bicarb 8.4% 50ml Syringe (Crash Cart) IV 10/02/23 15:19 50 meq ONCE ONE Administration Medical Decision Narrative: 83-year-old presenting today with full cardiopulmonary arrest. Upon arrival he had no pulse had a very low waveform capnography reading. However there was a poor waveform associated with this and with direct visualization the endotracheal tube was confirmed to go into the vocal cords. CPR was initiated immediately on serial bedside ultrasound imaging there was no cardiac activity noted which suggests he had a very poor prognosis. Additional ACS rounds including epinephrine calcium bicarb were administered. Chest compressions were continued while I had a discussion with the patient's who is in our consultation room at which point she stated the patient very specifically did not want aggressive resuscitative measures done and it was his desire to go quickly. She therefore asked that we discontinue resuscitative efforts which we did. Time of called at 3:22 PM. Exact cause of patient's cardiac arrest unknown however I suspect he may have had a pulmonary embolism given his recent leg pain and lower extremity surgery. However this cannot be definitively confirmed. Procedures Miscellaneous Procedure Procedure Performed: Limited cardiac ultrasound Indication: Cardiac arrest Identified structures: The heart was visualized in the parasternal long axis, parastenal short axis, apical four chamber and subxyphiod views. The IVC was visualized in the short axis and long axis at its entry into the right atrium. Findings: No cardiac activity significant dilatation of the right ventricle no obvious thrombus or pericardial effusion Impression: No cardiac activity dilated right ventricle which is nonspecific Images were saved to permanent archive The study was technically adequate CPT: 50855-24 This study was performed by me, and I personally interpreted all images/videos. Based on my clinical judgement, these images were adequate and did not necessitate further imaging. Critical Care Critical Care Time Critical Care Time: Yes Attestation: On 10/02/23, the high probability of a clinically significant, sudden or life threatening deterioration of the following system(s) required my full and direct attention, intervention and personal management. The time I documented below is in addition to time spent performing reported procedures but includes the following listed in this critical care notation. Total Time Total Critical Care Time: 35
--- NOTE | 2023-10-02 15:43 | PC.NURSE ---
Pt arrived to [facility] via [facility] @ 1508 EMS reports to arriving on scene @ 1434, pt found to be outside unresponsive with agonal respirations. Compressions initiated at approx 1413 by family, and continued by EMS on arrival. EMS reports to delivering 1 shock @ 120j, administering 1mg of epi, and intubating with a 7.5 ett (26 @ teeth) [employer]. After arrival to [facility] @ 1508, pt lost pulse and compressions were initiated @ 1511 1mg of epi given @ 1512 pulse check @ 1513; vfib on monitor; 1 shock delivered @ 120j; compressions resumed bicarb administered @ 1514 1mg of epi given @ 1515 pulse check @ 1515; asystole on monitor; compressions resumed calcium administered @ 1515 pulse check @ 1517; asystole on monitor; compressions resumed 1mg of epi given @ 1518 bicarb administered @ 1518 pulse check @ 1519; asystole on monitor; compressions resumed 1mg of epi given @ 1521 pulse check @ 1521; spoke with who wants to terminate efforts at this time. TOD: 1522 [place] to be notified Admissions Supervisor @ the bedside
--- NOTE | 2023-10-02 16:17 | PC.NURSE ---
[facility] contacted at this time. Spoke with Allyn Hankins; states we are pending at this time. Case #[id number]
--- NOTE | 2023-10-02 16:19 | PC.NURSE ---
residential building inspector states [facility] is in route for patient.
--- NOTE | 2023-10-02 16:36 | PC.NURSE ---
ARDEN releasing to the home at this time
[2023-10-02 17:31] VITALS: BP 00/00; PULSE 0; RESP 0; TEMP -17.7; TEMP 0
== END 2023-10-02 17:33 | disposition expired ==
PROVIDERS: Emergency Provider Student in an Organized Health Care Education/Training Program; PCP Family Medicine
DX: I46.9 Cardiac arrest, cause unspecified (principal)
CPT/HCPCS: 92950; 96374; 96375; 99291